=== PATIENT | male | born 1950 | race Caucasian/White ===

== ENCOUNTER 2018-12-07 16:35 | Emergency (ER) | payer OTHER ==
[~2018-12-07] VITALS: Ht 170.2 cm; Wt 101.2 kg
[2018-12-07 16:44] VITALS: Ht 170.2 cm; Wt 101.2 kg
[2018-12-07] MEDS ORDERED: LIDOCAINE/MYLANTA 40 ML BTL PO STA (16:55)
[2018-12-07] MEDS ORDERED: FAMOTIDINE 20 MG TAB PO STA (16:55)
[2018-12-07 19:53] VITALS: BP 118/89; PULSE 62; RESP 16
== END 2018-12-07 19:54 | disposition home or self-care (01) ==
LOC: E/R 16:35
DX: R10.13 Epigastric pain (principal); R40.2142 Coma scale, eyes open, spontaneous, at arrival to emergency department; R40.2362 Coma scale, best motor response, obeys commands, at arrival to emergency department; R40.2252 Coma scale, best verbal response, oriented, at arrival to emergency department; J44.9 Chronic obstructive pulmonary disease, unspecified; G30.9 Alzheimer's disease, unspecified; R45.851 Suicidal ideations; Z86.73 Personal history of transient ischemic attack (TIA), and cerebral infarction without residual deficits; Z87.891 Personal history of nicotine dependence
CPT/HCPCS: 36415; 80053; 80307; 81001; 83690; 85025; 99283